=== PATIENT | female | born 1975 | race Caucasian/White ===

== ENCOUNTER 2017-02-13 12:08 | Emergency (ER) | payer OTHER ==
[~2017-02-13] VITALS: Ht 167.6 cm; Wt 63.5 kg
[2017-02-13] MEDS ORDERED: IRON325 PO (12:21)
[2017-02-13] MEDS ORDERED: OS-CAL 500+D31 EAC1 PO (12:21)
[2017-02-13] MEDS ORDERED: PROBIOTIC1 EAC1 PO (12:21)
[2017-02-13] MEDS ORDERED: TYLENOL EXTRA500 MG PO (12:22)
[2017-02-13] MEDS ORDERED: IBUPROFEN 800800 M1 PO (12:22)
[2017-02-13] MEDS ORDERED: TIZANIDINE HCL4 MG PO (13:54)
[2017-02-13] MEDS ORDERED: IBUPROFEN 600600 M1 PO (13:54)
[2017-02-13 14:04] VITALS: BP 114/78
== END 2017-02-13 14:05 | disposition home or self-care (01) ==
LOC: ER 12:08
DX: S23.3XXA Sprain of ligaments of thoracic spine, initial encounter (principal); X58.XXXA Exposure to other specified factors, initial encounter; Y93.89 Activity, other specified; Y92.89 Other specified places as the place of occurrence of the external cause; Y99.8 Other external cause status; I47.1 Supraventricular tachycardia; M81.0 Age-related osteoporosis without current pathological fracture; Z98.890 Other specified postprocedural states; Z88.5 Allergy status to narcotic agent; Z88.6 Allergy status to analgesic agent; Z88.1 Allergy status to other antibiotic agents; Z88.2 Allergy status to sulfonamides; Z88.8 Allergy status to other drugs, medicaments and biological substances